=== PATIENT | female | born 1970 | race Caucasian/White ===

== ENCOUNTER 2018-12-17 18:45 | Emergency (ER) | payer MEDICAID ==
[~2018-12-17] VITALS: Ht 167.6 cm; Wt 95.0 kg
[2018-12-17 18:47] VITALS: BP 152/92
--- NOTE | 2018-12-17 18:58 | NUR ---
DR. LYNCH AT BEDSIDE, VERBALIZED PATIENT DOES NOT NEED TO BE ON PACER PADS
== END 2018-12-17 20:40 | disposition home or self-care (01) ==
LOC: ER 18:47
DX: G43.909 Migraine, unspecified, not intractable, without status migrainosus (principal); R00.1 Bradycardia, unspecified; F17.200 Nicotine dependence, unspecified, uncomplicated
CPT/HCPCS: 93005; 99283